=== PATIENT | female | born 2000 | race Caucasian/White ===

== ENCOUNTER 2021-03-09 22:17 | Emergency (ER) | payer OTHER ==
[~2021-03-09] VITALS: Ht 157.5 cm; Wt 65.8 kg
[2021-03-09] MEDS ORDERED: ACETAMINOPHEN 500 MG TABLET PO ONE (23:15)
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
[2021-03-10 02:35] VITALS: BP 112/64
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
== END 2021-03-10 02:41 | disposition home or self-care (01) ==
LOC: ER 22:17
DX: S06.0X9A Concussion with loss of consciousness of unspecified duration, initial encounter (principal); V49.49XA Driver injured in collision with other motor vehicles in traffic accident, initial encounter; Y93.I9 Activity, other involving external motion; Y92.89 Other specified places as the place of occurrence of the external cause; Y99.8 Other external cause status
CPT/HCPCS: 70450; 72125; 99285